=== PATIENT | female | born 1990 | race Caucasian/White ===

== ENCOUNTER 2018-12-26 04:27 | Emergency (ER) | payer OTHER ==
[~2018-12-26] VITALS: Ht 160 cm; Wt 61.0 kg
[2018-12-26 05:00] LABS: HCG UR SG 1.012 (1.003-1.030); MICROSCOPIC NOT IND
[2018-12-26 05:06] LABS: CULTURE INDICATED? NO
[2018-12-26] MEDS ORDERED: MULT-658 PO (05:38)
[2018-12-26] MEDS ORDERED: BIRTH CONTROL (05:38)
[2018-12-26] MEDS ORDERED: CHOL200059 PO (05:38)
[2018-12-26 05:53] LABS: BASOPHILS # (AUTO) 0.03 x10^3/uL (0-0.1); BASOPHILS % (AUTO) 0 % (0-1); EOSINOPHILS # (AUTO) 0.12 x10^3/uL (0-0.4); EOSINOPHILS % (AUTO) 1 % (1-7); LYMPHOCYTES # (AUTO) 3.66 x10^3/uL (1-3.4); LYMPHOCYTES % (AUTO) 36 % (22-44); MD NO; MEAN CORPUSCULAR HEMOGLOBIN 31.5 pg (27.0-34.8); MEAN CORPUSCULAR VOLUME 92.6 fL (80-100); MEAN PLATELET VOLUME 8.7 fL (7.4-10.4); MONOCYTES # (AUTO) 0.46 x10^3/uL (0.2-0.8); MONOCYTES % (AUTO) 5 % (2-9); NEUTROPHILS # (AUTO) 5.82 x10^3/uL (1.8-6.8); NEUTROPHILS % (AUTO) 58 % (42-75); PLATELET COUNT 321 x10^3/uL (130-400); RED BLOOD COUNT 4.28 x10^6/uL (3.82-5.3)
[2018-12-26 06:06] LABS: ANION GAP 6 mmol/L (5-15); CALCIUM 8.8 mg/dL (8.5-10.1); CHLORIDE 107 mmol/L (98-107)
[2018-12-26 06:10] LABS: ALANINE AMINOTRANSFERASE 20 U/L (12-78); ALBUMIN 3.9 g/dL (3.4-5.0); ALKALINE PHOSPHATASE 42 U/L (45-117); BILIRUBIN,TOTAL 0.5 mg/dL (0.2-1.0); CREATININE 0.72 mg/dL (0.55-1.02); TOTAL PROTEIN 7.2 g/dL (6.4-8.2)
--- NOTE | 2018-12-26 07:42 | NUR ---
RECEIVED REPORT FROM CLARK MCCLENDON, PLAN OF CARE DISCUSSED. PT LAYING WITH BLANKET, STATES PAIN IS "SLIGHT" UPPER MID ABD AREA. DENIES ANY NEEDS AT THIS TIME. CALL LIGHT IN PLACE
[2018-12-26 08:46] VITALS: BP 122/61
--- NOTE | 2018-12-26 08:46 | NUR ---
Patient/Caregiver given discharge instructions and they have confirmed that they understand the instructions. Patient ambulatory with steady gait.
== END 2018-12-26 08:49 | disposition home or self-care (01) ==
LOC: ED 08:43
DX: R10.11 Right upper quadrant pain (principal); Z88.0 Allergy status to penicillin; Z88.1 Allergy status to other antibiotic agents
CPT/HCPCS: 36415; 76700; 80053; 81003; 81025; 83690; 85025; 93005; 99284